=== PATIENT | female | born 1990 | race Hispanic/Latino ===

== ENCOUNTER 2019-12-31 18:57 | Emergency (ER) | payer BC, OTHER ==
[2019-12-31] MEDS ORDERED: Famotidine/PF 20 mg/2ml Vial ONE (19:12)
== END 2019-12-31 20:28 | disposition home or self-care (01) ==
LOC: ERS 18:57
DX: T63.461A Toxic effect of venom of wasps, accidental (unintentional), initial encounter (principal)
CPT/HCPCS: 96374; S0028